=== PATIENT | male | born 1990 | race Caucasian/White ===

== ENCOUNTER 2018-03-21 13:41 | Inpatient (IN) | payer OTHER ==
[2018-03-21 14:07] VITALS: BMI 24.5
--- NOTE | 2018-03-21 14:29 | HP ---
CIWA Score - CIWA Score Nausea/Vomitin-Mild Nausea/No Vomiting Muscle Tremors: 4-Moderate,w/Arms Extend Anxiety: 4-Mod. Anxious/Guarded Agitation: 4-Moderately Restless Paroxysmal Sweats: 1-Minimal Palms Moist Orientation: 1-Uncertain about Date Tacttile Disturbances: 1-Very Mild Itch/Numbness Auditory Disturbances: 0-None Visual Disturbances: 0-None Headache: 1-Very Mild CIWA-Ar Total Score: 17 Admission ROS BHS - HPI Chief Complaint: alcohol withdrawal sx pcp marijuana cocaine lipoma right breast Allergies/Adverse Reactions: Allergies Allergy/AdvReac Type Severity Reaction Status Date / Time Penicillins Allergy Severe Swelling Verified 03/21/18 14:27 History of Present Illness: 28 years old male with long history of alcohol nicotine dependence has schizophrenia is admitted to detox Exam Limitations: No Limitations - Ebola screening Have you traveled outside of the country in the last 21 days: No Have you had contact with anyone from an Ebola affected area: No Have you been sick,other than usual withdrawal symptoms: No Do you have a fever: No - Review of Systems Constitutional: Loss of Appetite, Changes in sleep, Unintentional Wgt. Loss, Unexplained wgt Loss EENT: reports: Blurred Vision (eye glassess at home) Respiratory: reports: No Symptoms reported Cardiac: reports: No Symptoms Reported GI: reports: Nausea, Poor Appetite, Poor Fluid Intake, Abdominal cramping : reports: No Symptoms Reported Musculoskeletal: reports: No Symptoms Reported Integumentary: reports: No Symptoms Reported Neuro: reports: Tremors Endocrine: reports: No Symptoms Reported Hematology: reports: No Symptoms Reported Psychiatric: reports: No Sypmtoms Reported, Judgement Intact, Anxious, Depressed Other Systems: Reviewed and Negative Patient History - Patient Medical History Hx Anemia: No Hx Asthma: No Hx Chronic Obstructive Pulmonary Disease (COPD): No Hx Cancer: No Hx Cardiac Disorders: No Hx Congestive Heart Failure: No Hx Hypertension: No Hx Hypercholesterolemia: No Hx Pacemaker: No HX Cerebrovascular Accident: No Hx Seizures: No Hx Dementia: No Hx Diabetes: No Hx Gastrointestinal Disorders: No Hx Liver Disease: No Hx Genitourinary Disorders: No Hx Sexually Transmitted Disorders: No Hx Renal Disease (ESRD): No Hx Thyroid Disease: No Hx Human Immunodeficiency Virus (HIV): No (11/14 last) Hx Hepatitis C: No Hx Depression: No Hx Suicide Attempt: Yes (2016 sheet wrap on neck) Hx Bipolar Disorder: No Hx Schizophrenia: Yes - Patient Surgical History Past Surgical History: No Anesthesia Reaction: No - PPD History Previous Implant?: Yes Documented Results: Negative w/proof Implanted On Prior [facility] Admission?: Yes Date: 12/28/13 Results: 0 mm PPD to be Administered?: Yes - Smoking Cessation Smoking history: Current every day smoker Have you smoked in the past 12 months: Yes Aproximately how many cigarettes per day: 4 Cigars Per Day: 0 Hx Chewing Tobacco Use: No Initiated information on smoking cessation: Yes 'Breaking Loose' booklet given: 03/21/18 - Substance & Tx. History Hx Alcohol Use: Yes Hx Substance Use: Yes Substance Use Type: Alcohol, Cocaine, Marijuana Hx Substance Use Treatment: Yes (12/2017 [facility]) Family Disease History - Family Disease History Family Disease History: Heart Disease: Father (), Respiratory: Sister ( seizure asthma), Other: Father, Sister Admission Physical Exam BHS - Vital Signs Vital Signs: Vital Signs - 24 hr 03/21/18 14:05 Temperature 98.8 F Pulse Rate 68 Respiratory 18 Rate Blood Pressure 126/81 - Physical General Appearance: Yes: Appropriately Dressed, Mild Distress, Tremorous, Irritable, Sweating, Anxious HEENTM: Yes: Hearing grossly Normal, Normocephalic, Normal Voice Respiratory: Yes: Chest Non-Tender, Lungs Clear, Normal Breath Sounds, No Respiratory Distress, No Accessory Muscle Use Neck: Yes: Supple, Trachea in good position Breast: Yes: Breasts Symetrical, No Discharge Cardiology: Yes: Regular Rhythm, Regular Rate, S1, S2 Abdominal: Yes: Normal Bowel Sounds, Non Tender, Flat Genitourinary: Yes: Within Normal Limits Back: Yes: Normal Inspection Musculoskeletal: Yes: full range of Motion, Gait Steady Extremities: Yes: Normal Inspection, Normal Range of Motion, Non-Tender, Tremors Neurological: Yes: Alert, Motor Strength 5/5, Normal Response, Depressed Affect Integumentary: Yes: Warm, Other (lump on right breast skin abrasion left upper arm) Lymphatic: Yes: Within Normal Limits - Diagnostic (1) Alcohol dependence with uncomplicated withdrawal Current Visit: Yes Status: Acute (2) Schizophrenia Current Visit: Yes Status: Suspected Qualifiers: Schizophrenia type: other Qualified Code(s): F20.89 - Other schizophrenia; F20.8 - Other schizophrenia (3) Nicotine dependence Current Visit: Yes Status: Acute Qualifiers: Nicotine product type: cigarettes Substance use status: in withdrawal Qualified Code(s): F17.213 - Nicotine dependence, cigarettes, with withdrawal (4) PCP dependence Current Visit: Yes Status: Chronic (5) Lipoma of breast Current Visit: Yes Status: Acute Comment: right breasst Cleared for Admission [facility] - Detox or Rehab [facility] Level of Care: Medically Managed Detox Regimen/Protocol: Librium S Breath Alcohol Content Breath Alcohol Content: 0 Urine Drug Screen - Control Is Test Valid: Yes - Results Drug Screen Negative: No Urine Drug Screen Results: THC-Marijuana, LOUIE-Cocaine, PCP-Phencyclidine
[2018-03-21] MEDS ORDERED: NICOTINE POLACRILEX 4 MG GUM BC PRN (14:36)
[2018-03-21] MEDS ORDERED: MAGNESIUM HYDROX 2400MG/30ML ORAL SUSPENSION 30 ML CUP PO PRN (14:36)
[2018-03-21] MEDS ORDERED: IBUPROFEN 400 MG TABLET (FP) PO PRN (14:36)
[2018-03-21] MEDS ORDERED: guaiFENesin/D-METHORPHAN HB 10 ML UNIT-DOSE CUPS PO PRN (14:36)
[2018-03-21] MEDS ORDERED: LOPERAMIDE HCL 2 MG CAPSULE PO PRN (14:36)
[2018-03-21] MEDS ORDERED: P-EPHED 60MG/TRIPROLIDI 2.5MG TABLET PO PRN (14:36)
[2018-03-21] MEDS ORDERED: chlordiazePOXIDE HCL 25 MG CAPSULE PO PRN (14:36)
[2018-03-21] MEDS ORDERED: MAG HYDROX/AL HYDROX/SIMETH 30 ML UNIT-DOSE CUP PO PRN (14:36)
[2018-03-21] MEDS ORDERED: MAGNESIUM CITRATE 300 ML BOTTLE PO PRN (14:36)
[2018-03-21] MEDS ORDERED: ACETAMINOPHEN 325 MG TABLET (FP) PO PRN (14:36)
[2018-03-21] MEDS ORDERED: MENTHOL/PHENOL 1 EACH UD MM PRN (14:36)
[2018-03-21] MEDS ORDERED: NICOTINE 21 MG/24 HOURS TOPICAL PATCH TD SCH (14:45)
[2018-03-21] MEDS ORDERED: NICOTINE POLACRILEX 4 MG GUM BUC PRN (14:50)
[2018-03-21] MEDS ORDERED: ALBUTEROL SO4 0.083% IH SOL 2.5 MG/3 ML VIAL.NEB. NEB PRN (14:53)
[2018-03-21] MEDS ORDERED: ALBUTEROL SO4 18 GM HFA INHALER IH PRN (14:53)
[2018-03-21] MEDS ORDERED: chlordiazePOXIDE HCL 25 MG CAPSULE ONE (17:00)
[2018-03-21] MEDS: BACITRACIN 0.9 GM PACKET TP SCH (17:02)
[2018-03-21] MEDS: NICOTINE 21 MG/24 HOURS TOPICAL PATCH TD SCH (17:07)
--- NOTE | 2018-03-21 17:49 | CONSULT ---
[facility] Psychiatric Consult - Data Date of interview: 03/21/18 Admission source: [facility] Identifying data: Readmission to [facility] for this 28 y/o AA male seeking detox treatment on for alcohol,phencyclidine,cannabis and cocaine dependence.Patient is a commonlaw ,father of two,homeless (fdc), unemployed and supported on Public Assistance. Substance Abuse History: Confirmed by patient in this session.Smoking history: Current every day smoker. Have you smoked in the past 12 months: Yes. Aproximately how many cigarettes per day: 4. Cigars Per Day: 0. Hx Chewing Tobacco Use: No. Initiated information on smoking cessation: Yes. 'Breaking Loose' booklet given: 03/21/18. - Substance & Tx. History. Hx Alcohol Use: Yes. Hx Substance Use: Yes. Substance Use Type: Alcohol, Cocaine, Marijuana. Hx Substance Use Treatment: Yes (12/2017 [facility]) Medical History: Patient endorses good general health.Remote history of right shoulder dislocation (2014). Psychiatric History: Patient admits to a history of 2-4 psychiatric hospitalizations ([facility] and [facility]) .Diagnosed,as per self-report, with " bipolar disorder and schizophrenia ".Mr Baljeet declares that he used to be followed at the [facility] clinic in the [place].NO show for several months.Previously maintained on seroquel (dose not recalled by patient).Non-adherent for months.Totally lost to psychiatric aftercare.Patient admits to multiple sucicide attempts (all via hanging during incarceration). Physical/Sexual Abuse/Trauma History: No reported history of abuse. Additional Comment: Urine Drug Screen Results: THC-Marijuana, LOUIE-Cocaine, PCP- Phencyclidine.Noted. Mental Status Exam - Mental Status Exam Alert and Oriented to: Time, Place, Person Cognitive Function: Good Patient Appearance: Well Groomed (coverd with tattoos : neck,fists,arms,forearms ) Mood: Nervous, Withdrawn, Irritable Affect: Mood Congruent Patient Behavior: Fatigued, Cooperative Speech Pattern: Clear, Appropriate Voice Loudness: Normal Thought Process: Intact, Goal Oriented Thought Disorder: Not Present Hallucinations: Denies Suicidal Ideation: Denies Homicidal Ideation: Denies Insight/Judgement: Poor Sleep: Poorly, Difficulty falling asleep Appetite: Good Muscle strength/Tone: Normal Gait/Station: Normal Psychiatric Findings - Problem List ([place] 1, 2,3) (1) Alcohol dependence with uncomplicated withdrawal Current Visit: Yes Status: Acute (2) PCP dependence Current Visit: Yes Status: Acute (3) Cocaine dependence Current Visit: Yes Status: Acute (4) Cannabis dependence Current Visit: Yes Status: Acute (5) Nicotine dependence Current Visit: Yes Status: Acute Qualifiers: Nicotine product type: cigarettes Substance use status: in withdrawal Qualified Code(s): F17.213 - Nicotine dependence, cigarettes, with withdrawal (6) Substance induced mood disorder Current Visit: Yes Status: Acute (7) History of schizophrenia Current Visit: Yes Status: Chronic Comment: As per self- report.Asymptomatic.Not on any medications. (8) Insomnia Current Visit: Yes Status: Acute - Initial Treatment Plan Initial Treatment Plan: Psychoeducation.Sleep hygiene.Detoxification in progress.Medications : seroquel 100 mg po hs.Side effects/benefits discussed with the patient.Mr Delong agrees to follow this plan of care.Observation.
--- NOTE | 2018-03-21 17:59 | EKG ---
Test Reason : Blood Pressure : / mmHG Vent. Rate : 069 BPM Atrial Rate : 069 BPM P-R Int : 144 ms QRS Dur : 078 ms QT Int : 372 ms P-R-T Axes : 081 082 067 degrees QTc Int : 398 ms NORMAL SINUS RHYTHM POSSIBLE LEFT ATRIAL ENLARGEMENT BORDERLINE ECG NO PREVIOUS ECGS AVAILABLE Confirmed by ARACELI DUMAS, PAUL ([id number]) on 03/21/2018 5:58:47 PM Referred By: Confirmed By:PAUL CHARLES MD
[2018-03-21 21:04] LABS: URINE APPEARANCE CLEAR; URINE BILIRUBIN NEGATIVE (<2.0 mg/dL); URINE COLOR YELLOW; URINE GLUCOSE (UA) NEGATIVE (NEGATIVE); URINE KETONE NEGATIVE (NEGATIVE); URINE LEUK ESTERASE NEGATIVE (NEGATIVE); URINE NITRITE NEGATIVE (NEGATIVE); URINE PROTEIN NEGATIVE (NEGATIVE)
[2018-03-21] MEDS: QUEtiapine FUMARATE 100 MG TABLET (FP) PO SCH (22:28)
[2018-03-21] MEDS: chlordiazePOXIDE HCL 25 MG CAPSULE PO SCH (22:28)
[2018-03-21] MEDS: THIAMINE HCL 100 MG TABLET (FP) PO SCH (22:28)
[2018-03-21] MEDS: MELATONIN 5 MG TABLETS PO PRN (22:29)
[2018-03-22] MEDS: chlordiazePOXIDE HCL 25 MG CAPSULE PO SCH ×4 (05:49→22:24)
[2018-03-22 10:16] LABS: CHLORIDE 105 mmol/L (98-107); POTASSIUM 4.2 mmol/L (3.5-5.1); SODIUM 141 mmol/L (136-145)
[2018-03-22 10:19] LABS: HEMATOCRIT 41.5 % (35.4-49); MCH 30.9 pg (25.7-33.7); MCHC 33.8 g/dl (32.0-35.9); MEAN CELL VOLUME 91.7 fl (80-96); MEAN PLT VOLUME 9.9 fl (7.5-11.1); PLATELET COUNT 155 K/MM3 (134-434); RBC 4.53 M/mm3 (4.00-5.60); RDW 13.5 % (11.9-15.9); WHITE BLOOD COUNT 4.5 K/mm3 (4.0-10.0)
[2018-03-22 10:41] LABS: ALBUMIN 3.4 g/dl (3.4-5.0); ALK PHOS 54 U/L (45-117); ANION GAP 7 (8-16); BILIRUBIN,TOTAL 1.2 mg/dL (0.2-1.0); BLOOD UREA NITROGEN 23 mg/dL (7-18); CALCIUM 8.2 mg/dL (8.5-10.1); CO2 29 mmol/L (21-32); CREATININE 1.2 mg/dL (0.7-1.3); GLUCOSE,RANDOM 120 mg/dL (74-106); SGOT/AST 14 U/L (15-37); SGPT/ALT 20 U/L (12-78); TOT PROT 6.1 g/dl (6.4-8.2)
[2018-03-22] MEDS: NICOTINE 21 MG/24 HOURS TOPICAL PATCH TD SCH (10:43)
[2018-03-22] MEDS: PRENATAL VITAMINS W/ FOLIC ACID TABLET (FP) PO SCH (10:43)
[2018-03-22] MEDS: BACITRACIN 0.9 GM PACKET TP SCH (10:43)
--- NOTE | 2018-03-22 13:48 | PN ---
[facility] CIWA - CIWA Score Nausea/Vomitin-No Nausea/No Vomiting Muscle Tremors: None Anxiety: 4-Mod. Anxious/Guarded Agitation: 2 Paroxysmal Sweats: 2 Orientation: 2-Disoriented Date<2 days Tacttile Disturbances: 2-Mild Itch/Numbness/Burn Auditory Disturbances: 1-Very Mild Visual Disturbances: 2-Mild Sensitivity Headache: 3-Moderate CIWA-Ar Total Score: 18 BHS Progress Note (SOAP) Subjective: Interrupted sleep, H/a, Stomach Cramping, Body Aches. Objective: PATIENT A & O X 2 (UNCERTAIN ABOUT CURRENT DAY / DATE). PATIENT OBSERVED AMBULATING ON UNIT. NO ACUTE DISTRESS.. 03/22/18 13:50 Vital Signs Temperature 96.9 F L 03/22/18 09:58 Pulse Rate 82 03/22/18 09:58 Respiratory Rate 18 03/22/18 09:58 Blood Pressure 107/59 03/22/18 09:58 O2 Sat by Pulse Oximetry (%) Laboratory Tests 03/21/18 03/22/18 03/22/18 20:00 07:30 07:30 WBC 4.5 D RBC 4.53 Hgb 14.0 Hct 41.5 MCV 91.7 MCH 30.9 MCHC 33.8 RDW 13.5 Plt Count 155 MPV 9.9 Sodium 141 Potassium 4.2 Chloride 105 Carbon Dioxide 29 Anion Gap 7 L BUN 23 H D Creatinine 1.2 D Creat Clearance w eGFR > 60 Random Glucose 120 H D Calcium 8.2 L Total Bilirubin 1.2 H D AST 14 L D ALT 20 Alkaline Phosphatase 54 Total Protein 6.1 L Albumin 3.4 Urine Color Yellow Urine Appearance Clear Urine pH 7.0 Ur Specific [place] 1.024 Urine Protein Negative Urine Glucose (UA) Negative Urine Ketones Negative Urine Blood Negative Urine Nitrite Negative Urine Bilirubin Negative Urine Urobilinogen 2.0 Ur Leukocyte Esterase Negative RPR Titer HIV 1&2 Antibody Screen HIV P24 Antigen 03/22/18 03/22/18 07:30 08:30 WBC RBC Hgb Hct MCV MCH MCHC RDW Plt Count MPV Sodium Potassium Chloride Carbon Dioxide Anion Gap BUN Creatinine Creat Clearance w eGFR Random Glucose Calcium Total Bilirubin AST ALT Alkaline Phosphatase Total Protein Albumin Urine Color Urine Appearance Urine pH Ur Specific [place] Urine Protein Urine Glucose (UA) Urine Ketones Urine Blood Urine Nitrite Urine Bilirubin Urine Urobilinogen Ur Leukocyte Esterase RPR Titer Nonreactive HIV 1&2 Antibody Screen Negative HIV P24 Antigen Negative LABS NOTED. HCV AB RESULT PENDING. 03/22/18 13:53 Assessment: 03/22/18 13:51 WITHDRAWAL SYMPTOMS. Plan: CONTINUE DETOX. INCREASE DAILY PO FLUID INTAKE. PRN FLEXERIL FOR BODY ACHES / MUSCLE SPASMS.
[2018-03-22] MEDS: THIAMINE HCL 100 MG TABLET (FP) PO SCH (22:24)
[2018-03-22] MEDS: QUEtiapine FUMARATE 100 MG TABLET (FP) PO SCH (22:25)
[2018-03-22] MEDS: CYCLOBENZAPRINE HCL 10 MG TABLET (FP) PO PRN (22:25)
[2018-03-22] MEDS: MELATONIN 5 MG TABLETS PO PRN (22:26)
[2018-03-23] MEDS: chlordiazePOXIDE HCL 25 MG CAPSULE PO SCH ×3 (07:22→17:57)
[2018-03-23] MEDS: BACITRACIN 0.9 GM PACKET TP SCH (10:23)
[2018-03-23] MEDS: PRENATAL VITAMINS W/ FOLIC ACID TABLET (FP) PO SCH (10:23)
[2018-03-23] MEDS: NICOTINE 21 MG/24 HOURS TOPICAL PATCH TD SCH (10:25)
--- NOTE | 2018-03-23 11:24 | PN ---
S CIWA - CIWA Score Nausea/Vomitin-No Nausea/No Vomiting Muscle Tremors: None Anxiety: 4-Mod. Anxious/Guarded Agitation: 0-Normal Activity Paroxysmal Sweats: 3 Orientation: 0-Oriented Tacttile Disturbances: 2-Mild Itch/Numbness/Burn Auditory Disturbances: 0-None Visual Disturbances: 3-Moderate Sensitivity Headache: 3-Moderate CIWA-Ar Total Score: 15 BHS Progress Note (SOAP) Subjective: Sweating, Anxious, Fatigue, H/A, Body Aches. Objective: PATIENT A & O X 3. NO ACUTE DISTRESS. 03/23/18 11:25 Vital Signs Temperature 96.6 F L 03/23/18 09:11 Pulse Rate 70 03/23/18 09:11 Respiratory Rate 20 03/23/18 09:11 Blood Pressure 109/68 03/23/18 09:11 O2 Sat by Pulse Oximetry (%) Laboratory Tests 03/21/18 03/22/18 03/22/18 20:00 07:30 07:30 WBC 4.5 D RBC 4.53 Hgb 14.0 Hct 41.5 MCV 91.7 MCH 30.9 MCHC 33.8 RDW 13.5 Plt Count 155 MPV 9.9 Sodium 141 Potassium 4.2 Chloride 105 Carbon Dioxide 29 Anion Gap 7 L BUN 23 H D Creatinine 1.2 D Creat Clearance w eGFR > 60 Random Glucose 120 H D Calcium 8.2 L Total Bilirubin 1.2 H D AST 14 L D ALT 20 Alkaline Phosphatase 54 Total Protein 6.1 L Albumin 3.4 Urine Color Yellow Urine Appearance Clear Urine pH 7.0 Ur Specific [place] 1.024 Urine Protein Negative Urine Glucose (UA) Negative Urine Ketones Negative Urine Blood Negative Urine Nitrite Negative Urine Bilirubin Negative Urine Urobilinogen 2.0 Ur Leukocyte Esterase Negative RPR Titer Hep C Ab Diagnostic Liver Fibrosis Interp HIV 1&2 Antibody Screen HIV P24 Antigen 03/22/18 03/22/18 03/22/18 07:30 07:30 08:30 WBC RBC Hgb Hct MCV MCH MCHC RDW Plt Count MPV Sodium Potassium Chloride Carbon Dioxide Anion Gap BUN Creatinine Creat Clearance w eGFR Random Glucose Calcium Total Bilirubin AST ALT Alkaline Phosphatase Total Protein Albumin Urine Color Urine Appearance Urine pH Ur Specific [place] Urine Protein Urine Glucose (UA) Urine Ketones Urine Blood Urine Nitrite Urine Bilirubin Urine Urobilinogen Ur Leukocyte Esterase RPR Titer Nonreactive Hep C Ab Diagnostic <0.1 Liver Fibrosis Interp HIV 1&2 Antibody Screen Negative HIV P24 Antigen Negative LABS NOTED. Assessment: 03/23/18 11:26 WITHDRAWAL SYMPTOMS. Plan: CONTINUE DETOX. ENCOURAGE AMBULATION. INCREASE DAILY PO FLUID INTAKE.
[2018-03-23] MEDS: THIAMINE HCL 100 MG TABLET (FP) PO SCH (22:20)
[2018-03-23] MEDS: chlordiazePOXIDE 5 MG CAPSULE PO SCH (22:20)
[2018-03-23] MEDS: QUEtiapine FUMARATE 100 MG TABLET (FP) PO SCH (22:20)
[2018-03-23] MEDS: CYCLOBENZAPRINE HCL 10 MG TABLET (FP) PO PRN (22:21)
[2018-03-24] MEDS: chlordiazePOXIDE 5 MG CAPSULE PO SCH ×3 (05:40→18:03)
[2018-03-24] MEDS: PRENATAL VITAMINS W/ FOLIC ACID TABLET (FP) PO SCH (10:11)
[2018-03-24] MEDS: BACITRACIN 0.9 GM PACKET TP SCH (10:11)
[2018-03-24] MEDS: NICOTINE 21 MG/24 HOURS TOPICAL PATCH TD SCH (10:12)
--- NOTE | 2018-03-24 15:36 | PN ---
BHS Progress Note (SOAP) Subjective: Sweating, Fatigue, Anxious, Interrupted Sleep. Objective: PATIENT A & O X 3, OBSERVED AMBULATING ON UNIT. NO ACUTE DISTRESS. 03/24/18 15:33 Vital Signs Temperature 97.1 F L 03/24/18 13:12 Pulse Rate 99 H 03/24/18 13:12 Respiratory Rate 20 03/24/18 13:12 Blood Pressure 121/77 03/24/18 13:12 O2 Sat by Pulse Oximetry (%) Laboratory Tests 03/21/18 03/22/18 03/22/18 20:00 07:30 07:30 WBC 4.5 D RBC 4.53 Hgb 14.0 Hct 41.5 MCV 91.7 MCH 30.9 MCHC 33.8 RDW 13.5 Plt Count 155 MPV 9.9 Sodium 141 Potassium 4.2 Chloride 105 Carbon Dioxide 29 Anion Gap 7 L BUN 23 H D Creatinine 1.2 D Creat Clearance w eGFR > 60 Random Glucose 120 H D Calcium 8.2 L Total Bilirubin 1.2 H D AST 14 L D ALT 20 Alkaline Phosphatase 54 Total Protein 6.1 L Albumin 3.4 Urine Color Yellow Urine Appearance Clear Urine pH 7.0 Ur Specific [place] 1.024 Urine Protein Negative Urine Glucose (UA) Negative Urine Ketones Negative Urine Blood Negative Urine Nitrite Negative Urine Bilirubin Negative Urine Urobilinogen 2.0 Ur Leukocyte Esterase Negative RPR Titer Hep C Ab Diagnostic Liver Fibrosis Interp HIV 1&2 Antibody Screen HIV P24 Antigen 03/22/18 03/22/18 03/22/18 07:30 07:30 08:30 WBC RBC Hgb Hct MCV MCH MCHC RDW Plt Count MPV Sodium Potassium Chloride Carbon Dioxide Anion Gap BUN Creatinine Creat Clearance w eGFR Random Glucose Calcium Total Bilirubin AST ALT Alkaline Phosphatase Total Protein Albumin Urine Color Urine Appearance Urine pH Ur Specific [place] Urine Protein Urine Glucose (UA) Urine Ketones Urine Blood Urine Nitrite Urine Bilirubin Urine Urobilinogen Ur Leukocyte Esterase RPR Titer Nonreactive Hep C Ab Diagnostic <0.1 Liver Fibrosis Interp HIV 1&2 Antibody Screen Negative HIV P24 Antigen Negative LABS NOTED. Assessment: 03/24/18 15:34 WITHDRAWAL SYMPTOMS. Plan: CONTINUE DETOX. INCREASE DAILY PO FLUID INTAKE. ENCOURAGE AMBULATION. PATIENT SCHEDULED FOR D/C/TOMORROW AM.
[2018-03-24] MEDS: QUEtiapine FUMARATE 100 MG TABLET (FP) PO SCH (22:04)
[2018-03-24] MEDS: THIAMINE HCL 100 MG TABLET (FP) PO SCH (22:04)
[2018-03-24] MEDS: CYCLOBENZAPRINE HCL 10 MG TABLET (FP) PO PRN (22:04)
[2018-03-24] MEDS: chlordiazePOXIDE HCL 10 MG CAPSULE PO SCH (22:04)
[2018-03-25] MEDS: chlordiazePOXIDE HCL 10 MG CAPSULE PO SCH ×2 (05:15→10:27)
[2018-03-25 06:08] VITALS: TEMP 96
[2018-03-25 09:10] VITALS: BP 116/77; PULSE 92
[2018-03-25] MEDS: PRENATAL VITAMINS W/ FOLIC ACID TABLET (FP) PO SCH (10:27)
[2018-03-25] MEDS: NICOTINE 21 MG/24 HOURS TOPICAL PATCH TD SCH (10:27)
[2018-03-25] MEDS: BACITRACIN 0.9 GM PACKET TP SCH (10:27)
--- NOTE | 2018-03-25 17:35 | DS ---
[facility] Detox Discharge Summary Admission Date: 03/21/18 Discharge Date: 03/25/18 - History Present History: Alcohol Dependence, Cannabis Dependence, Cocaine Dependence, Pcp Dependence Additional Comments: PATIENT GOING TO [facility] ([place], [place] FOR AFTERCARE. PATIENT WAS DISCHARGED FROM DETOX UNIT IN STABLE MEDICAL CONDITION. Pertinent Past History: Insomnia, History of Schizophrenia, Lipoma of Breast, Asthma, Nicotine Dependence. - Physical Exam Results Vital Signs: Vital Signs Temperature 96 F L 03/25/18 09:09 Pulse Rate 92 H 03/25/18 09:09 Respiratory Rate 20 03/25/18 09:09 Blood Pressure 116/77 03/25/18 09:09 O2 Sat by Pulse Oximetry (%) Pertinent Admission Physical Exam Findings: WITHDRAWAL SYMPTOMS. Laboratory Tests 03/21/18 03/22/18 03/22/18 20:00 07:30 07:30 WBC 4.5 D RBC 4.53 Hgb 14.0 Hct 41.5 MCV 91.7 MCH 30.9 MCHC 33.8 RDW 13.5 Plt Count 155 MPV 9.9 Sodium 141 Potassium 4.2 Chloride 105 Carbon Dioxide 29 Anion Gap 7 L BUN 23 H D Creatinine 1.2 D Creat Clearance w eGFR > 60 Random Glucose 120 H D Calcium 8.2 L Total Bilirubin 1.2 H D AST 14 L D ALT 20 Alkaline Phosphatase 54 Total Protein 6.1 L Albumin 3.4 Urine Color Yellow Urine Appearance Clear Urine pH 7.0 Ur Specific [place] 1.024 Urine Protein Negative Urine Glucose (UA) Negative Urine Ketones Negative Urine Blood Negative Urine Nitrite Negative Urine Bilirubin Negative Urine Urobilinogen 2.0 Ur Leukocyte Esterase Negative RPR Titer Hep C Ab Diagnostic Liver Fibrosis Interp HIV 1&2 Antibody Screen HIV P24 Antigen 03/22/18 03/22/18 03/22/18 07:30 07:30 08:30 WBC RBC Hgb Hct MCV MCH MCHC RDW Plt Count MPV Sodium Potassium Chloride Carbon Dioxide Anion Gap BUN Creatinine Creat Clearance w eGFR Random Glucose Calcium Total Bilirubin AST ALT Alkaline Phosphatase Total Protein Albumin Urine Color Urine Appearance Urine pH Ur Specific [place] Urine Protein Urine Glucose (UA) Urine Ketones Urine Blood Urine Nitrite Urine Bilirubin Urine Urobilinogen Ur Leukocyte Esterase RPR Titer Nonreactive Hep C Ab Diagnostic <0.1 Liver Fibrosis Interp HIV 1&2 Antibody Screen Negative HIV P24 Antigen Negative LABS NOTED. - Treatment Hospital Course: Detox Protocol Followed, Detoxed Safely, Responded well, Discharged Condition Good, Rehab Referral Accepted Patient has Accepted a Rehab Referral to: [facility] ([place] - Medication Discharge Medications: Ambulatory Orders Albuterol Sulfate Inhaler - [Ventolin Hfa Inhaler -] 2 inh PO Q4H PRN 03/21/18 - Diagnosis (1) Alcohol dependence with uncomplicated withdrawal Status: Acute (2) Asthma Status: Acute Qualifiers: Asthma severity: mild Asthma persistence: intermittent Asthma complication type: uncomplicated Qualified Code(s): J45.20 - Mild intermittent asthma, uncomplicated (3) Lipoma of breast Status: Chronic (4) Nicotine dependence Status: Acute Qualifiers: Nicotine product type: cigarettes Substance use status: in withdrawal Qualified Code(s): F17.213 - Nicotine dependence, cigarettes, with withdrawal (5) PCP dependence Status: Acute (6) Insomnia Status: Acute Qualifiers: Insomnia type: unspecified Qualified Code(s): G47.00 - Insomnia, unspecified (7) Substance induced mood disorder Status: Acute (8) History of schizophrenia Status: Chronic - AMA Did Patient Leave Against Medical Advice: No
== END 2018-03-25 11:50 | disposition home or self-care (01) | DRG 774 ==
LOC: YASAS 13:41 → Y3N 15:25
PROVIDERS: ADMIT Internal Medicine; ATTEND Internal Medicine
PROC: HZ2ZZZZ Detoxification Services for Substance Abuse Treatment (ICD-10-PCS; principal; 2018-03-21)
DX: F10.230 Alcohol dependence with withdrawal, uncomplicated (principal); F14.20 Cocaine dependence, uncomplicated; F12.20 Cannabis dependence, uncomplicated; F16.20 Hallucinogen dependence, uncomplicated; F17.210 Nicotine dependence, cigarettes, uncomplicated; F19.24 Other psychoactive substance dependence with psychoactive substance-induced mood disorder; F20.9 Schizophrenia, unspecified; G47.00 Insomnia, unspecified; D17.1 Benign lipomatous neoplasm of skin and subcutaneous tissue of trunk; Z91.5 Personal history of self-harm; Z59.0 Homelessness
CPT/HCPCS: 36415; 80053; 81003; 85027; 86593; 87389; 93005; 93010